=== PATIENT | female | born 1950 | race Caucasian/White ===

== ENCOUNTER 2016-10-09 17:10 | Emergency (ER) | payer MEDICARE, OTHER ==
--- NOTE | 2016-10-09 17:16 | ED Physician Documentation ---
PD HPI SKIN - Stated complaint Stated Complaint: COLOSTOMY BAG LEAKING - History obtained from History obtained from: Patient - History of Present Illness Timing - onset: How many days ago (1-2 days of having the colostomy leak from around the edge. She has had colostomy since April and had been doing okay. They are traveling from [place] and not sure why it is leaking now. The skin has gotten red along lower edge and they feel this is worsening the process by not sticking even more. Here for help with the Colostmy care.) Timing - duration: Days (2 days of it leaking some, having to change the appliance a few times daily. Feeling okay otherwise.) Timing - details: Gradual onset Location: Abdomen Quality / character: Burning (having some redness and discomfort of the skin.) Associated symptoms: No: Fever, N/V/D Review of Systems Constitutional: denies: Fever, Chills GI: denies: Nausea, Vomiting PD PAST MEDICAL HISTORY - Past Medical History Cardiovascular: None Respiratory: None Neuro: None Endocrine/Autoimmune: None - Present Medications Home Medications: Ambulatory Orders Medication Instructions Recorded Confirmed Esomeprazole Magnesium [Nexium] 40 mg PO BID 10/09/16 10/09/16 Levothyroxine Sodium [Synthroid] 150 mcg PO DAILY 10/09/16 10/09/16 Mirtazapine 15 mg PO DAILY 10/09/16 10/09/16 Polyethylene Glycol 3350 [Miralax] 17 gm PO DAILY 10/09/16 10/09/16 Tamazapam 10/09/16 - Allergies Allergies/Adverse Reactions: Allergies Allergy/AdvReac Type Severity Reaction Status Date / Time metoclopramide HCl * Allergy Unknown Verified 10/09/16 17:20 [From Reglan] ondansetron HCl * Allergy Unknown Verified 10/09/16 17:20 [From Zofran (as hydrochloride)] PD ED PE NORMAL - Vitals Vital signs reviewed: Yes - General General: Alert and oriented X 3, No acute distress, Well developed/nourished - Cardiac Cardiac: RRR, No murmur - Respiratory Respiratory: Clear bilaterally - Abdomen Abdomen: Normal bowel sounds, Soft, Non distended, No organomegaly, Other (J- tube into upper left abd with slight drainage around base but no signs of skin infection. Colostomy lower left abdomen with some redness around edge of it lower medial c/w local irritation. Slight leaking of the bag lower medial. ) Results - Vitals Vitals: Vital Signs - 24 hr 10/09/16 17:13 Temperature 36.8 C Heart Rate 85 Respiratory 18 Rate Blood Pressure 156/66 H O2 Saturation 98 Oxygen O2 Source Room air PD MEDICAL DECISION MAKING - ED course Complexity details: considered differential (MAC closed for the day. Nurses here helped with the stoma care, with new ring, paste and appliance. Patient and can see how these work, and can return during day tomorrow when the Stoma care nurses are available. ), d/w patient Departure - Departure Disposition: 01 Home, Self Care Clinical Impression: Colostomy care Condition: Stable Record reviewed to determine appropriate education?: Yes Instructions: Colostomy Stoma Care Comments: See how the paste and such does with the colostomy working. If needed, return to ED here during morning, when the Stoma care nurses are available in the facility.
[2016-10-09 17:21] VITALS: BP 156/66
== END 2016-10-09 18:37 | disposition home or self-care (01) ==
LOC: ED 17:10
DX: K94.03 Colostomy malfunction (principal)
CPT/HCPCS: 99282; 99283